=== PATIENT | female | born 1945 | race Hispanic/Latino ===

== ENCOUNTER 2017-10-12 16:21 | Inpatient (IN) | payer MEDICARE ==
[2017-10-12] MEDS ORDERED: DILAUDID IV PRN (20:07)
[2017-10-12] MEDS ORDERED: DULCOLAX PR PRN (20:07)
[2017-10-12] MEDS ORDERED: TYLENOL PO PRN (20:07)
[2017-10-12] MEDS ORDERED: MILK OF MAGNESIA PO PRN (20:07)
[2017-10-12] MEDS ORDERED: PERCOCET 5/325 PO PRN (20:07)
[2017-10-12] MEDS ORDERED: ZOFRAN IV PRN (20:07)
--- NOTE | 2017-10-12 20:07 | History and Physical Report ---
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 comes to office for persistent coughing and wheezing for 10 days.Patient was initiated on Levaquin and prednisone + cherytussin cough syrup for 10 days.Went to a restaurant and was about to pass out -hence admitted as sirect admit for possible COPD exacerbaion./Bronchitis No fever ore chills Past History Past Medical History: No medical history, other ( Meningioma) Past Surgical History: appendectomy, cholecystectomy Social history: single, full code, other (Exposed to second hand smoke ) Family history: no significant family history Medications and Allergies Allergies Allergy/AdvReac Type Severity Reaction Status Date / Time codeine AdvReac Unknown Verified 10/12/17 16:47 Penicillins AdvReac Unknown Verified 10/12/17 16:47 Sulfa (Sulfonamide AdvReac Unknown Verified 10/12/17 16:48 Antibiotics) Home Medications Medication Instructions Recorded Confirmed Last Taken Type Levofloxacin [Levaquin TAB] 750 mg PO DAILY 10/12/17 10/12/17 Unknown History predniSONE 10 mg PO DAILY 10/12/17 10/12/17 Unknown History Review of Systems All systems: negative Exam - Constitutional Vitals: Temp Pulse Resp BP Pulse Ox 98.4 F 93 H 18 152/69 95 10/12/17 17:56 10/12/17 17:56 10/12/17 17:56 10/12/17 17:56 10/12/17 17:56 General appearance: Present: no acute distress, mild distress, well-nourished - EENT Eyes: Present: PERRL ENT: hearing intact, clear oral mucosa - Neck Neck: Present: supple, normal ROM - Respiratory Respiratory effort: normal Respiratory: bilateral: CTA, rhonchi - Cardiovascular Heart rate: 80 Rhythm: regular Heart Sounds: Present: S1 & S2. Absent: rub, click - Extremities Extremities: no ischemia, pulses intact, pulses symmetrical, No edema Peripheral Pulses: within normal limits - Abdominal General gastrointestinal: Present: soft, non-tender, non-distended, normal bowel sounds Female genitourinary: Present: normal - Integumentary Integumentary: Present: clear, warm, dry - Musculoskeletal Musculoskeletal: gait normal, strength equal bilaterally - Psychiatric Psychiatric: appropriate mood/affect, intact judgment & insight - Neurologic Neurologic: CNII-XII intact, moves all extremities - Allied Health Allied health notes reviewed: nursing, case management Results - Labs CBC & Chem 7: 10/13/17 05:17 10/13/17 05:17 - Imaging and Cardiology Chest x-ray: report reviewed Assessment and Plan Advance Directives: Yes (Full code) VTE prophylaxis?: Chemical - Patient Problems (1) COPD exacerbation Current Visit: Yes Status: Acute Plan to address problem: patient initiated on Neb tx Levaquin and solumedrol (2) Headache Current Visit: Yes Status: Acute (3) Tension headache Current Visit: Yes Status: Acute Plan to address problem: Fiorcet tid prn (4) DVT prophylaxis Current Visit: Yes Status: Acute Plan to address problem: On Lovenox
[2017-10-12] MEDS ORDERED: DUONEB *Not for PRN Use IH (20:25)
[2017-10-12] MEDS ORDERED: FIORICET PO PRN (20:28)
[2017-10-12] MEDS ORDERED: ROBITUSSIN AC PO PRN (20:30)
[2017-10-12] MEDS ORDERED: PROVENTIL IH PRN (20:33)
[2017-10-12] MEDS: D5NS 1,000 ML IV SCH (20:57)
[2017-10-12] MEDS: PEPCID IV SCH (21:06)
[2017-10-12 21:08] LABS: Hematocrit 41.7 % (30.3-42.9); Hemoglobin 14.2 gm/dl (10.1-14.3); Mean Corpuscular HGB Conc 34 % (30-34); Mean Corpuscular Hemoglobin 30 pg (28-32); Mean Corpuscular Volume 88 fl (79-97); Platelet Count 227 K/mm3 (140-440); Red Blood Count 4.76 M/mm3 (3.65-5.03); Red Cell Distribution Width 12.6 % (13.2-15.2); White Blood Count 7.2 K/mm3 (4.5-11.0)
[2017-10-12] MEDS: LEVAQUIN 750MG/150ML 750 MG/150 ML BAG IV SCH (21:08)
[2017-10-12 21:12] LABS: Alanine Aminotransferase 14 units/L (7-56); Albumin 4.8 g/dL (3.9-5); Albumin/Globulin Ratio 1.9 %; Alkaline Phosphatase 98 units/L (35-129); Anion Gap 20 mmol/L; BUN/Creatinine Ratio 14; Blood Urea Nitrogen 13 mg/dL (7-17); Calcium 9.2 mg/dL (8.4-10.2); Carbon Dioxide 24 mmol/L (22-30); Chloride 102.7 mmol/L (98-107); Glucose 192 mg/dL (65-100); Potassium 4.7 mmol/L (3.6-5.0); Sodium 142 mmol/L (137-145); Total Protein 7.3 g/dL (6.3-8.2)
[2017-10-12] MEDS: DUONEB *Not for PRN Use IH SCH (21:13)
[2017-10-12 22:06] LABS: Blastocytes % (Manual) 0 %
[2017-10-12 22:07] LABS: Basophils % (Manual) 0 % (0.0-1.8); Diff Status Complete; Eosinophils % (Manual) 0 % (0.0-4.3); Platelet Estimate Consistent w Auto; RBC Morphology Normal; Total Cells Counted Percent 0
[2017-10-12] MEDS ORDERED: REGLAN IV PRN (23:08)
[2017-10-13] MEDS: DUONEB *Not for PRN Use IH SCH ×4 (06:19→21:21)
[2017-10-13 06:33] LABS: Basophils % (Auto) 0.1 % (0.0-1.8); Hematocrit 39.9 % (30.3-42.9); Hemoglobin 13.6 gm/dl (10.1-14.3); Mean Corpuscular HGB Conc 34 % (30-34); Mean Corpuscular Hemoglobin 30 pg (28-32); Mean Corpuscular Volume 88 fl (79-97); Platelet Count 214 K/mm3 (140-440); Red Blood Count 4.53 M/mm3 (3.65-5.03); Red Cell Distribution Width 12.5 % (13.2-15.2); White Blood Count 7.1 K/mm3 (4.5-11.0)
[2017-10-13 06:52] LABS: Anion Gap 19 mmol/L; BUN/Creatinine Ratio 21; Blood Urea Nitrogen 15 mg/dL (7-17); Calcium 8.9 mg/dL (8.4-10.2); Carbon Dioxide 24 mmol/L (22-30); Chloride 106.4 mmol/L (98-107); Glucose 164 mg/dL (65-100); Potassium 4.9 mmol/L (3.6-5.0); Sodium 144 mmol/L (137-145)
--- NOTE | 2017-10-13 08:57 | XRay Report ---
CHEST 2 VIEWS INDICATION: Cough. COMPARISON: 06/29/2010 FINDINGS: PA and lateral chest radiographs demonstrate normal cardiomediastinal silhouette. Clear lungs. No pleural effusions or CHF. Right hemidiaphragm slightly elevated. Demineralized bones. Probable cholecystectomy clips appear new. CONCLUSION: No acute chest process with probable interval cholecystectomy, as described. Thank you for the opportunity to participate in this patient's care.
[2017-10-13] MEDS ORDERED: NACL P/F VIAL (10 ML) 10 ML ONE (09:44)
[2017-10-13] MEDS: PEPCID IV SCH ×2 (10:40→21:11)
--- NOTE | 2017-10-13 15:55 | Progress Note ---
Assessment and Plan Assessment and plan: 72 y/o female direct admitted to hospital by PCP/ attending Dr. Pringle. Patient presented with persistent coughing and wheezing for 10 days.Patient was initiated on Levaquin and prednisone + cherytussin cough syrup for 10 days. Went to a restaurant and was about to pass out -hence admitted as sirect admit for possible COPD exacerbaion./Bronchitis COPD exacerbation Continue Neb tx Levaquin and solumedrol Tension headache Fiorcet tid prn DVT prophylaxis On Lovenox Cough History Interval history: Patient is alert and in bed. She has no new complaints at this time. She continues to cough intermittently while Hospitalist Physical - Constitutional Vitals: Temp Pulse Resp BP Pulse Ox 98.9 F 120 H 20 127/61 95 10/13/17 14:50 10/13/17 15:03 10/13/17 15:03 10/13/17 14:50 10/13/17 14:50 General appearance: Present: no acute distress, mild distress, well-nourished - EENT Eyes: Present: PERRL, EOM intact ENT: hearing intact, clear oral mucosa - Neck Neck: Present: supple, normal ROM - Respiratory Respiratory effort: normal, other (coughing) - Cardiovascular Rhythm: regular Heart Sounds: Present: S1 & S2 - Extremities Extremities: no ischemia, No edema Peripheral Pulses: within normal limits - Abdominal General gastrointestinal: deferred - Integumentary Integumentary: Present: clear, warm, dry - Psychiatric Psychiatric: appropriate mood/affect - Neurologic Neurologic: moves all extremities - Allied Health Allied health notes reviewed: nursing Results - Labs CBC & Chem 7: 10/13/17 05:17 10/13/17 05:17 Labs: Laboratory Last Values WBC 7.1 K/mm3 (4.5-11.0) 10/13/17 05:17 RBC 4.53 M/mm3 (3.65-5.03) 10/13/17 05:17 Hgb 13.6 gm/dl (10.1-14.3) 10/13/17 05:17 Hct 39.9 % (30.3-42.9) 10/13/17 05:17 MCV 88 fl (79-97) 10/13/17 05:17 MCH 30 pg (28-32) 10/13/17 05:17 MCHC 34 % (30-34) 10/13/17 05:17 RDW 12.5 % (13.2-15.2) L 10/13/17 05:17 Plt Count 214 K/mm3 (140-440) 10/13/17 05:17 Lymph % (Auto) 9.3 % (13.4-35.0) L 10/13/17 05:17 Bacon % (Auto) 1.1 % (0.0-7.3) 10/13/17 05:17 Eos % (Auto) 0.0 % (0.0-4.3) 10/13/17 05:17 Baso % (Auto) 0.1 % (0.0-1.8) 10/13/17 05:17 Lymph # 0.7 K/mm3 (1.2-5.4) L 10/13/17 05:17 Bacon # 0.1 K/mm3 (0.0-0.8) 10/13/17 05:17 Eos # 0.0 K/mm3 (0.0-0.4) 10/13/17 05:17 Baso # 0.0 K/mm3 (0.0-0.1) 10/13/17 05:17 Add Manual Diff Complete 10/12/17 20:27 Total Counted 100 10/12/17 20:27 Seg Neutrophils % 89.5 % (40.0-70.0) H 10/13/17 05:17 Seg Neuts % (Manual) 94.0 % (40.0-70.0) H 10/12/17 20:27 Band Neutrophils % 1.0 % 10/12/17 20:27 Lymphocytes % (Manual) 5.0 % (13.4-35.0) L 10/12/17 20:27 Reactive Lymphs % (Man) 0 % 10/12/17 20:27 Monocytes % (Manual) 0 % (0.0-7.3) 10/12/17 20:27 Eosinophils % (Manual) 0 % (0.0-4.3) 10/12/17 20:27 Basophils % (Manual) 0 % (0.0-1.8) 10/12/17 20:27 Metamyelocytes % 0 % 10/12/17 20:27 Myelocytes % 0 % 10/12/17 20:27 Promyelocytes % 0 % 10/12/17 20:27 Blast Cells % 0 % 10/12/17 20:27 Nucleated RBC % Not Reportable 10/12/17 20:27 Seg Neutrophils # 6.3 K/mm3 (1.8-7.7) 10/13/17 05:17 Seg Neutrophils # Man 6.8 K/mm3 (1.8-7.7) 10/12/17 20:27 Band Neutrophils # 0.1 K/mm3 10/12/17 20:27 Lymphocytes # (Manual) 0.4 K/mm3 (1.2-5.4) L 10/12/17 20:27 Abs React Lymphs (Man) 0.0 K/mm3 10/12/17 20:27 Monocytes # (Manual) 0.0 K/mm3 (0.0-0.8) 10/12/17 20:27 Eosinophils # (Manual) 0.0 K/mm3 (0.0-0.4) 10/12/17 20:27 Basophils # (Manual) 0.0 K/mm3 (0.0-0.1) 10/12/17 20:27 Metamyelocytes # 0.0 K/mm3 10/12/17 20:27 Myelocytes # 0.0 K/mm3 10/12/17 20:27 Promyelocytes # 0.0 K/mm3 10/12/17 20:27 Blast Cells # 0.0 K/mm3 10/12/17 20:27 WBC Morphology Not Reportable 10/12/17 20:27 Hypersegmented Neuts Not Reportable 10/12/17 20:27 Hyposegmented Neuts Not Reportable 10/12/17 20:27 Hypogranular Neuts Not Reportable 10/12/17 20:27 Smudge Cells Not Reportable 10/12/17 20:27 Toxic Granulation Not Reportable 10/12/17 20:27 Toxic Vacuolation Not Reportable 10/12/17 20:27 Dohle Bodies Not Reportable 10/12/17 20:27 Pelger-Huet Anomaly Not Reportable 10/12/17 20:27 Debo Rods Not Reportable 10/12/17 20:27 Platelet Estimate Consistent w auto 10/12/17 20:27 Clumped Platelets Not Reportable 10/12/17 20:27 Plt Clumps, EDTA Not Reportable 10/12/17 20:27 Large Platelets Not Reportable 10/12/17 20:27 Giant Platelets Not Reportable 10/12/17 20:27 Platelet Satelliting Not Reportable 10/12/17 20:27 Plt Morphology Comment Not Reportable 10/12/17 20:27 RBC Morphology Normal 10/12/17 20:27 Dimorphic RBCs Not Reportable 10/12/17 20:27 Polychromasia Not Reportable 10/12/17 20:27 Hypochromasia Not Reportable 10/12/17 20:27 Poikilocytosis Not Reportable 10/12/17 20:27 Anisocytosis Not Reportable 10/12/17 20:27 Microcytosis Not Reportable 10/12/17 20:27 Macrocytosis Not Reportable 10/12/17 20:27 Spherocytes Not Reportable 10/12/17 20:27 Pappenheimer Bodies Not Reportable 10/12/17 20:27 Sickle Cells Not Reportable 10/12/17 20:27 Target Cells Not Reportable 10/12/17 20:27 Tear Drop Cells Not Reportable 10/12/17 20:27 Ovalocytes Not Reportable 10/12/17 20:27 Helmet Cells Not Reportable 10/12/17 20:27 Lerma-[place] Bodies Not Reportable 10/12/17 20:27 [place] Rings Not Reportable 10/12/17 20:27 Mariangel Cells Not Reportable 10/12/17 20:27 Bite Cells Not Reportable 10/12/17 20:27 Crenated Cell Not Reportable 10/12/17 20:27 Elliptocytes Not Reportable 10/12/17 20:27 Acanthocytes (Spur) Not Reportable 10/12/17 20:27 Rouleaux Not Reportable 10/12/17 20:27 Hemoglobin C Crystals Not Reportable 10/12/17 20:27 Schistocytes Not Reportable 10/12/17 20:27 Malaria parasites Not Reportable 10/12/17 20:27 Dustin Bodies Not Reportable 10/12/17 20:27 Hem Pathologist Commnt No 10/12/17 20:27 Sodium 144 mmol/L (137-145) 10/13/17 05:17 Potassium 4.9 mmol/L (3.6-5.0) 10/13/17 05:17 Chloride 106.4 mmol/L (98-107) 10/13/17 05:17 Carbon Dioxide 24 mmol/L (22-30) 10/13/17 05:17 Anion Gap 19 mmol/L 10/13/17 05:17 BUN 15 mg/dL (7-17) 10/13/17 05:17 Creatinine 0.7 mg/dL (0.7-1.2) 10/13/17 05:17 Estimated GFR > 60 ml/min 10/13/17 05:17 BUN/Creatinine Ratio 21 % 10/13/17 05:17 Glucose 164 mg/dL (65-100) H 10/13/17 05:17 Hemoglobin A1c 5.6 % (4-6) 10/12/17 20:27 Calcium 8.9 mg/dL (8.4-10.2) 10/13/17 05:17 Total Bilirubin 0.20 mg/dL (0.1-1.2) 10/12/17 20:27 AST 17 units/L (5-40) 10/12/17 20:27 ALT 14 units/L (7-56) 10/12/17 20:27 Alkaline Phosphatase 98 units/L (35-129) 10/12/17 20:27 Total Protein 7.3 g/dL (6.3-8.2) 10/12/17 20:27 Albumin 4.8 g/dL (3.9-5) 10/12/17 20:27 Albumin/Globulin Ratio 1.9 % 10/12/17 20:27 - Imaging and Cardiology Chest x-ray: report reviewed (No acute findings)
[2017-10-13] MEDS ORDERED: ROBITUSSIN DM PO PRN (16:09)
[2017-10-13] MEDS: ROBITUSSIN PO PRN ×2 (17:26→21:09)
[2017-10-13] MEDS: D5NS 1,000 ML IV SCH (19:07)
[2017-10-13] MEDS: LEVAQUIN 750MG/150ML 750 MG/150 ML BAG IV SCH (21:13)
[2017-10-14] MEDS: DUONEB *Not for PRN Use IH SCH ×3 (02:20→13:26)
[2017-10-14] MEDS: D5NS 1,000 ML IV SCH (07:05)
[2017-10-14] MEDS ORDERED: NACL P/F VIAL (10 ML) 10 ML ONE (10:10)
[2017-10-14] MEDS: PEPCID IV SCH (10:29)
--- NOTE | 2017-10-14 14:04 | Discharge Summary ---
Providers - Providers Date of Admission: 10/12/17 17:44 Date of discharge: 10/14/17 Attending physician: BRANDEE PAN MD Primary care physician: ITA PRINGLE Hospitalization Reason for admission: Coughing and wheezing Condition: Good Hospital course: 72 y/o female direct admitted to hospital by PCP/ attending Dr. Pringle. Patient presented with persistent coughing and wheezing for 10 days.Patient was initiated on Levaquin and prednisone + cherytussin cough syrup for 10 days. Chest Xray revealed no acute chest process. Patient was treated with antibiotics, systemic steroids, Duoneb, Fioricet and analgesics PRN pain. Disposition: - TO HOME OR SELFCARE - Discharge Diagnoses (1) COPD exacerbation Status: Acute (2) Tension headache Status: Acute Core Measure Documentation - Palliative Care Palliative Care/ Comfort Measures: Not Applicable - Core Measures Any of the following diagnoses?: none Exam - Constitutional Vitals: Temp Pulse Resp BP Pulse Ox 98.2 F 102 H 18 109/51 96 10/14/17 07:18 10/14/17 09:30 10/14/17 09:30 10/14/17 07:18 10/14/17 07:18 General appearance: Present: no acute distress, well-nourished - EENT Eyes: Present: PERRL ENT: hearing intact, clear oral mucosa - Neck Neck: Present: supple, normal ROM - Respiratory Respiratory effort: normal Respiratory: bilateral: CTA - Cardiovascular Heart Sounds: Present: S1 & S2. Absent: rub, click - Extremities Extremities: pulses symmetrical, No edema Peripheral Pulses: within normal limits - Abdominal General gastrointestinal: Present: deferred Female genitourinary: Present: deferred - Rectal Rectal Exam: deferred - Integumentary Integumentary: Present: clear, warm, dry - Musculoskeletal Musculoskeletal: gait normal, strength equal bilaterally - Psychiatric Psychiatric: appropriate mood/affect, intact judgment & insight - Neurologic Neurologic: CNII-XII intact, moves all extremities - Allied Health Allied health notes reviewed: nursing Plan Activity: advance as tolerated, fall precautions Weight Bearing Status: Weight Bear as Tolerated Diet: low fat, low cholesterol, low salt Follow up with: ITA PRINGLE MD [Primary Care Provider] - 7 Days Prescriptions: ALBUTEROL Inhaler [ProAir HFA Inhaler] 2 puff IH QID PRN #1 inh PRN Reason: Shortness Of Breath Budesonide/Formoterol Fumarate [Symbicort 80-4.5 Mcg Inhaler] 10.2 gm IH BID #1 hfa.aer.ad Butalb/Acetamin/Caff 50-325-40 [Fioricet] 1 tab PO Q4H PRN #30 tablet PRN Reason: Headache Levofloxacin [Levaquin TAB] 750 mg PO DAILY #5 tablet Prednisone [predniSONE 10 mg (6-Day Pack, 21 Tabs)] 10 mg PO .TAPER #1 tab.ds.pk Tiotropium Embudo [Spiriva Respimat] 4 gm IH DAILY #1 mist.inhal
[2017-10-14 14:12] VITALS: BP 134/67
[2017-10-14] MEDS ORDERED: LEVAQUIN PO SCH (22:00)
== END 2017-10-14 14:35 | disposition home or self-care (01) | DRG 192 ==
LOC: UNDOADMIN 16:21 → 3A 16:21 → 2B-ACE 17:44
PROVIDERS: ADMIT Internal Medicine; ATTEND Internal Medicine
DX: J44.1 Chronic obstructive pulmonary disease with (acute) exacerbation (principal); G44.209 Tension-type headache, unspecified, not intractable; Z90.49 Acquired absence of other specified parts of digestive tract; Z88.5 Allergy status to narcotic agent; Z88.0 Allergy status to penicillin; Z88.2 Allergy status to sulfonamides; Z79.2 Long term (current) use of antibiotics; Z79.899 Other long term (current) drug therapy
CPT/HCPCS: 36415; 71020; 80048; 80053; 83036; 85007; 85025; 94640; J1170; J1956; J2405; J2765; J2920; J2930; J7042